=== PATIENT | female | born 1970 | race Caucasian/White ===

== ENCOUNTER 2019-10-12 11:30 | Outpatient (CLI) | payer BC, SELFPAY ==
[2019-10-12 12:08] LABS: Basophils Absolute Auto 0.1 K/mm3 (0.0-0.1); Basophils Percent Auto 1.3 % (0.2-1.2); Eosinophils Absolute Auto 0.1 K/mm3 (0-0.3); Eosinophils Percent Auto 1.8 % (0-4.4); Hematocrit 41.8 % (37.0-47.0); Hemoglobin 13.6 g/dL (12.0-15.0); Immature Granulocyte Absolute 0.01 K/mm3 (0.00-0.031); Immature Granulocyte Percent A 0.3 % (0-0.5); Lymphocytes Percent Auto 32.9 % (18.3-44.2); Mean Corpuscular HGB Conc 32.5 g/dl (32-36); Mean Corpuscular Hemoglobin 31.4 pg (26-34); Mean Corpuscular Volume 96.5 fl (80-100); Mean Platelet Volume 12.2 fl (7.4-10.4); Monocytes Absolute Auto 0.4 K/mm3 (0.1-0.6); Monocytes Percent Auto 10.6 % (2.6-8.5); Neutrophils Absolute Auto 2.1 K/mm3 (1.3-6.7); Neutrophils Percent Auto 53.1 % (45.5-73.1); Platelet Count Result 249 k/mm3 (150-375); Red Blood Count 4.33 M/mm3 (4.2-5.4); Red Cell Distribution Width 12.6 % (11.5-14.5)
[2019-10-12 12:17] LABS: Add Urine Microscopic? YES; Appearance Urine Clear (Clear); Bilirubin Urine Negative (Negative); Blood Urine Negative (Negative); Color Urine Straw (Yellow); Glucose Urine UA Negative (Negative); Ketones Urine Negative (Negative); Leukocyte Esterase Ur Negative LEU/UL (NEGATIVE); Nitrate Urine Negative (Negative); Protein Urine Negative (Negative); RBC Urine 0-2 /hpf (0-2); Specific Grav Ur 1.009 (1.001-1.035); Squamous Epithelial Cell Urine Occasional /hpf (Few); Urobilinogen Urine Negative mg/dL (<2.0); WBC Urine 0-3 /hpf (0-3)
[2019-10-12 12:23] LABS: Alanine Aminotransferase 24 U/L (4-35); Albumin Level 4.7 g/dL (3.5-5.1); Alkaline Phosphatase 60 U/L (38-126); Aspartate Amino Transferase 32 U/L (14-36); Bilirubin,Total 0.3 mg/dL (0.2-1.3); Blood Urea Nitrogen 9 mg/dL (7-17); Calcium 9.7 mg/dL (8.4-10.2); Carbon Dioxide 28 mmol/L (22-30); Chloride 104 mmol/L (98-107); Estimated Glomerular Filt Rate > 60; Glucose 82 mg/dL (65-105); Potassium 4.4 mmol/L (3.4-5.0); Sodium 140 mmol/L (137-145)
[2019-10-12 12:56] LABS: Free T4 Free Thyroxine 0.93 ng/mL (0.78-2.19)
[2019-10-14 04:48] LABS: Thyroglobulin 10.3 ng/mL (2.8-40.9); Thyroglobulin Antibodies <1 IU/mL (<=1)
[2019-10-14 20:42] LABS: Triiodothyronine T3 Free 2.8 pg/mL (2.3-4.2)
== END 2019-10-12 11:31 | disposition home or self-care (01) ==
PROVIDERS: PCP Internal Medicine; Visit Provider Internal Medicine
DX: Z00.00 Encounter for general adult medical examination without abnormal findings (principal); R03.0 Elevated blood-pressure reading, without diagnosis of hypertension
CPT/HCPCS: 36415; 80053; 81001; 84432; 84439; 84443; 84481; 85025; 86800

== ENCOUNTER 2019-10-17 09:03 | Outpatient (CLI) | payer BC, SELFPAY ==
--- NOTE | ~2019-10-17 | US_ITS ---
US renal BI, US retroperitoneal duplex ltd EXAMINATION: US renal BI, US retroperitoneal duplex ltd DATE: 10/17/2019 10:02 CDT INDICATION: Hypertension. TECHNIQUE: Sonographic imaging of the kidneys was performed with a 3.5 MHz transducer. Retroperitone al duplex sonogram of the renal arteries also obtained. FINDINGS: Renal echotexture is normal bilaterally without focal mass or stone. There is right extrare nal pelvis. Right kidney measures 9.9 cm. Left kidney measures 10.8 cm. No focal flow abnormalities are seen in the renal arteries on color Doppler. The peak systolic veloc ities at the origin of the right and left renal arteries and aorta are 83 cm per second, 145 cm per s econd, and 96 cm per second, respectively. The velocities and renal to aortic ratios are within mimi l limits. IMPRESSION: 1. No Doppler evidence of renal artery stenosis. Reviewed, dictated and finalized at location A. IMPRESSION: 1. No Doppler evidence of renal artery stenosis.
== END 2019-10-17 09:04 | disposition home or self-care (01) ==
LOC: ANHIMG 09:10
PROVIDERS: PCP Internal Medicine; Visit Provider Internal Medicine
DX: I10 Essential (primary) hypertension (principal)
CPT/HCPCS: 76775; 93976

== ENCOUNTER 2022-02-01 01:09 | Day surgery (SDC) | payer OTHER, SELFPAY ==
[2022-01-13 13:52] VITALS: BMI 20.6
--- NOTE | 2022-02-01 08:32 | P.PNAN_ITS ---
Anes - Initial Pre Proc Eval Procedure: Operation Date: 02/01/22 11:00 Proposed Procedures p Screening Colonoscopy - Tom Jiménez MD Date/Time: 02/01/22 08:32 Surgeon: Tom Jiménez MD Pre Op Diagnosis: neoplasm screening Patient Data Age: 51 Gender: F Height: 1.52 m Weight: 48 kg Allergies Allergy/AdvReac Type Severity Reaction Status Date / Time No Known Drug Allergies Allergy Unknown Verified 02/01/22 09:51 Home Medications Medication Instructions Recorded Confirmed Type ascorbic acid (vitamin C) 500 mg 500 mg PO DAILY 10/12/19 02/01/22 History capsule mecobalamin (vitamin B12) 5,000 5,000 mcg PO DAILY 10/12/19 02/01/22 History mcg disintegrating tablet multivitamin 1 tablet PO DAILY 10/12/19 02/01/22 History lactobacillus combination no.8 3 3,000 mmu cells PO DAILY 05/06/20 02/01/22 History billion cell capsule (Adult Probiotic) Patient hx anesthesia problems: none Family hx anesthesia problems: none Results Review: All pre-operative results and documents have been reviewed as part of the pre- operative evaluation. [facility] Past Medical History Medical History BMI 20.0-20.9, adult Dyspareunia Elevated blood pressure reading without diagnosis of hypertension Encounter for preventive health examination History of x1 Surgical History Surgical History History of breast biopsy Family History Family History Father Family history of heart disease in male family member before age 55 Social History Social History (Updated 11/03/21 @ 09:06 by Gianna Robertson MA) Smoking status: Never smoker Second hand tobacco smoke exposure: No Alcohol intake: never Substance use: never Substance use type: does not use Living arrangements: with family Spiritual care concerns: No Anes - Eval Final PreProcedure Day of Procedure 02/01/22 08:32 Patient weight: normal Heart: regular rate and rhythm Lungs: clear to auscultation Airway: Mallampati scale class II Neurological: alert and oriented Last oral intake: >/= 8 hours ASA classification: II Emergent: no Anesthetic plan: proceed Anesthesia type and monitoring: general GIVS and standard monitoring Results Review: All pre-operative results and documents have been reviewed as part of the pre- operative evaluation. Informed Consent: The patient's anesthetic plan and its attendant risks and benefits were discussed with the patient/family/POA. Questions were solicited and answers provided to the satisfaction of the patient/family/POA.
[2022-02-01 09:52] VITALS: BP 108/70; PULSE 77; RESP 16; TEMP 36.4; O2SAT 100
[2022-02-01] MEDS: LACTATED RINGERS 1,000 ML 150 ML IV CONT (09:55)
--- NOTE | 2022-02-01 10:29 | PM.HPGS ---
History of Present Illness History of Present Illness Consent: Risks, benefits, and alternatives have been discussed and questions answered. Patient agrees to proceed with procedure. Chief complaint: neoplasm screening Narrative: Venice Franco is a 51 year old female here for first screening colonoscopy Review of Systems Constitutional: Constitutional: Denies headache(s) and Denies weakness Eyes: Eyes: Denies blurry vision ENT: Reports Normal hearing present, Denies headache(s) and Denies neck pain Cardiovascular: Cardiovascular: Denies chest pain and Denies dyspnea Respiratory: Respiratory: Denies dyspnea Gastrointestinal: Gastrointestinal: Reports no additional gastrointestinal complaints Genitourinary: Genitourinary: Denies dysuria Musculoskeletal: Musculoskeletal: Denies neck pain Integumentary/Breasts: Skin/Breast: Denies dry skin Neurologic: Reports Normal hearing present, Denies headache(s) and Denies weakness Psychiatric: Psychiatric: Denies anxiety Endocrine: Endocrine: Denies change in body appearance Hematologic/Lymphatic: Hematologic/Lymphatic: Denies easy bleeding Allergic/Immunologic: Allergic/Immunologic: Denies urticaria PMF Past Medical History Medical History (Updated 02/01/22 @ 10:30 by Tom Jiménez MD) BMI 20.0-20.9, adult Colon cancer screening Dyspareunia Elevated blood pressure reading without diagnosis of hypertension Encounter for preventive health examination History of x1 Surgical History Surgical History History of breast biopsy Family History Family History Father Family history of heart disease in male family member before age 55 Social History Social History (Updated 11/03/21 @ 09:06 by Gianna Robertson MA) Smoking status: Never smoker Second hand tobacco smoke exposure: No Alcohol intake: never Substance use: never Substance use type: does not use Living arrangements: with family Spiritual care concerns: No Meds Home Medications and Allergies Home Medications Medication Instructions Recorded Confirmed Type ascorbic acid (vitamin C) 500 mg 500 mg PO DAILY 10/12/19 02/01/22 History capsule mecobalamin (vitamin B12) 5,000 5,000 mcg PO DAILY 10/12/19 02/01/22 History mcg disintegrating tablet multivitamin 1 tablet PO DAILY 10/12/19 02/01/22 History lactobacillus combination no.8 3 3,000 mmu cells PO DAILY 05/06/20 02/01/22 History billion cell capsule (Adult Probiotic) Allergies Allergy/AdvReac Type Severity Reaction Status Date / Time No Known Drug Allergies Allergy Unknown Verified 02/01/22 09:51 Vital Signs Vital Signs - 24 hr 02/01/22 09:52 Temperature 97.6 F Pulse Rate 77 Respiratory Rate 16 Blood Pressure 108/70 Pulse Oximetry 100 Oxygen Delivery Room Air Exam Const: General: comfortable and no acute distress HENMT: General nose exam: Normal nares present Eyes: General: appearance normal, both eyes and all related structures Neck: Neck: no JVD Resp: Auscultation: clear to auscultation bilaterally Cardio: Rate: regular rate Rhythm: regular rhythm GI: Inspection: non-distended GI Palp: Yes Soft to palpation Skin: General skin exam: normal color Neuro: General: gait normal Speech: normal speech Extrem: General: normal to inspection Psych: Mental Status: mental status grossly normal Assessment and Plan Assessment and plan (1) Colon cancer screening: Code(s): Z12.11 - Encounter for screening for malignant neoplasm of colon Status: Acute Assessment and Plan: colonoscopy
[2022-02-01 10:52] VITALS: BP 124/75; PULSE 74; RESP 18; O2SAT 100
[2022-02-01 11:02] VITALS: BP 135/89; PULSE 67; RESP 18; O2SAT 100
[2022-02-01 11:12] VITALS: BP 125/78; PULSE 63; RESP 18; O2SAT 97
== END 2022-02-01 11:20 | disposition home or self-care (01) ==
PROVIDERS: PCP Internal Medicine; Visit Provider Internal Medicine Gastroenterology
PROC: 0DJD8ZZ Inspection of Lower Intestinal Tract, Via Natural or Artificial Opening Endoscopic (ICD-10-PCS; CPT 45378; principal; 2022-02-01 11:00)
DX: Z12.11 Encounter for screening for malignant neoplasm of colon (principal); K64.8 Other hemorrhoids
CPT/HCPCS: 45378; J2704; J7120